=== PATIENT | female | born 1965 | race Caucasian/White ===

== ENCOUNTER 2020-09-18 05:31 | Outpatient (CLI) | payer OTHER, MEDICAID ==
[~2020-09-18] VITALS: Ht 121.9 cm; Wt 52.3 kg
[2020-09-18] MEDS ORDERED: CETI10TA49 PO (09:24)
[2020-09-18] MEDS ORDERED: TRAZ-227 PO (09:24)
[2020-09-18] MEDS ORDERED: FEXO180T84 PO (09:24)
[2020-09-18] MEDS ORDERED: MONT10TA32 PO (09:24)
[2020-09-18] MEDS ORDERED: RPN.25T PO (09:24)
[2020-09-18] MEDS ORDERED: HYDR-3820 PO (09:24)
== END 2020-09-18 09:52 | disposition home or self-care (01) ==
LOC: PREOP 05:31
PROVIDERS: ATTEND Otolaryngology Otolaryngology/Facial Plastic Surgery
DX: Z01.818 Encounter for other preprocedural examination (principal)

== ENCOUNTER 2020-10-27 05:43 | Outpatient (CLI) | payer OTHER, MEDICAID ==
[~2020-10-27 05:43] MED LIST: CETI10TA49 PO; FEXO180T84 PO; HYDR-3820 PO; MONT10TA32 PO; RPN.25T PO; TRAZ-227 PO
== END 2020-10-27 08:08 | disposition home or self-care (01) ==
LOC: PREOP 05:43
PROVIDERS: ATTEND Surgery
DX: Z01.818 Encounter for other preprocedural examination (principal)

== ENCOUNTER 2020-10-30 05:50 | Day surgery (SDC) | payer MEDICARE, MEDICAID ==
[2020-10-30] VITALS (11 sets, daily range): BP systolic 123–195; BP diastolic 48–91
[~2020-10-30] VITALS: Ht 121 cm; Wt 50.4 kg
[2020-10-30] MEDS ORDERED: BSS 15 ML ONE (06:44)
[2020-10-30] MEDS ORDERED: COCAINE HCL 4% 2 ML SYR ONE (06:44)
[2020-10-30] MEDS ORDERED: PHENYLEPHRINE 0.5% NASAL SPR (NEO-SYNEPHRINE) REG ONE (06:44)
[2020-10-30] MEDS ORDERED: AMPICILLIN/SULBACTAM INJECTION 1.5 GM in NS (IVPB) 100 ML IV ONE (06:45)
[2020-10-30] MEDS ORDERED: LACTATED RINGERS 1,000 ML IV PRN (06:45)
[2020-10-30] MEDS ORDERED: LIDOCAINE/EPI 1%-1:100,000 (XYLOCAINE) 20ML ONE (06:45)
[2020-10-30] MEDS ORDERED: MUPIROCIN 2% OINT 22 GM (BACTROBAN) TUBE ONE (06:45)
[2020-10-30] MEDS ORDERED: LIDOCAINE PF 2% 5 ML (XYLOCAINE) VIAL ONE (06:50)
[2020-10-30] MEDS ORDERED: SEVOFLURANE (ULTANE) 15 ML INHAL SOLN ONE ×2 (06:50→08:00)
[2020-10-30] MEDS ORDERED: proPOfol 200 MG/20 ML (DIPRIVAN) VIAL IV ONE (06:50)
[2020-10-30] MEDS ORDERED: MIDAZOLAM 2 MG/2 ML (VERSED) VIAL ONE (06:51)
[2020-10-30] MEDS ORDERED: fentaNYL INJ 100 MCG/2 ML AMP ONE (06:51)
--- NOTE | 2020-10-30 07:11 | Progress Note-Pre Operative ---
Pre-Operative Progress Note H&P Reviewed The H&P was reviewed, patient examined and no changes noted. Date Seen by Provider: October 30, 2020 Time Seen by Provider: 06:30 Date H&P Reviewed: October 30, 2020 Time H&P Reviewed: 06:30 Pre-Operative Diagnosis: Bilat Recurrent Sinusitis/Chronic Sinusitis/ Hyper of INf Turbs SAMIA CÁRDENAS MD October 30, 2020 07:11
[2020-10-30] MEDS ORDERED: ROCURONIUM 10 MG/ML 5 ML SYRINGE IV ONE (07:58)
[2020-10-30] MEDS ORDERED: NEOSTIGMINE 3 MG/3 ML VIAL ONE (08:00)
--- NOTE | 2020-10-30 08:13 | Progress Note-Post Operative ---
Post-Operative Progess Note Surgeon (s)/Chaperon (s) Surgeon SAMIA CÁRDENAS MD [place] n/a Pre-Operative Diagnosis Bilat Recurrent Sinusitis/Chronic Sinusitis/ Hyper of INf Turbs Post-Operative Diagnosis same Post-Op Procedure Note Date of Procedure: October 30, 2020 Name of Procedure Performed: Bilat ESS, Bilat REd of Inf Turbs Description & Findings Description and Findings: n/a Anesthesia Type get Estimated Blood Loss minimal Packing none. Specimen(s) collected/removed bialt Chronic Sinus disease SAMIA CÁRDENAS MD October 30, 2020 08:13
[2020-10-30] MEDS ORDERED: HYDROcodone/APAP 5 MG/325 MG (LORTAB) TAB PO PRN (08:15)
[2020-10-30] MEDS ORDERED: D5 1/2 NS W/KCL 20 MEQ/L 1,000 ML IV SCH (08:15)
[2020-10-30] MEDS ORDERED: predniSONE 20 MG TAB PO ONE (08:15)
[2020-10-30] MEDS ORDERED: ACETAMINOPHEN 325 MG TABLET PO PRN (08:15)
[2020-10-30] MEDS ORDERED: PROMETHAZINE INJ 25 MG/ML (PHENERGAN) AMP IVP PRN (08:15)
--- NOTE | 2020-10-30 08:29 | Anesthesia-General Post-Op ---
General Patient Condition Mental Status/LOC: Same as Preop Cardiovascular: Satisfactory Nausea/Vomiting: Absent Respiratory: Satisfactory Pain: Controlled Complications: Absent Post Op Complications Complications None Follow Up Care/Instructions Patient Instructions None needed. Anesthesia/Patient Condition Patient Condition Patient is doing well, no complaints, stable vital signs, no apparent adverse anesthesia problems. No complications reported per nursing. ALLYN MICHAEL CRNA October 30, 2020 08:29
[2020-10-30] MEDS ORDERED: morphine INJ 10 MG/ML 1ML (SYR OR VIAL) IVP ONE (08:30)
[2020-10-30] MEDS ORDERED: MEPERIDINE (DEMEROL) INJ 50 MG/ML IVP ONE (08:30)
[2020-10-30] MEDS ORDERED: ONDANSETRON 4 MG/2 ML (SDV) Z0FRAN IVP PRN (08:30)
[2020-10-30] MEDS ORDERED: HYDROcodone/APAP 5 MG/325 MG (LORTAB) TAB ONE (09:09)
[2020-10-30] MEDS ORDERED: predniSONE 20 MG TAB ONE (09:17)
[2020-10-30] MEDS ORDERED: ACHD5005 PO ×2 (09:32→09:35)
[2020-10-30] MEDS ORDERED: PRD20T PO (09:34)
[2020-10-30] MEDS ORDERED: AMOX-355 PO (09:34)
== END 2020-10-30 10:10 | disposition home or self-care (01) ==
LOC: SDC 05:50
PROVIDERS: ATTEND Otolaryngology Otolaryngology/Facial Plastic Surgery
DX: J32.8 Other chronic sinusitis (principal); R09.81 Nasal congestion; J45.909 Unspecified asthma, uncomplicated; J34.3 Hypertrophy of nasal turbinates; J33.9 Nasal polyp, unspecified; F17.210 Nicotine dependence, cigarettes, uncomplicated; Z79.899 Other long term (current) drug therapy
CPT/HCPCS: 87081